=== PATIENT | male | born 1970 | race Caucasian/White ===

== ENCOUNTER 2016-12-19 19:26 | Emergency (ER) | payer SELFPAY ==
[2016-12-19] MEDS ORDERED: Acetaminophen 500 MG TAB ONE (20:05)
[2016-12-19] MEDS ORDERED: Ondansetron HCl/PF 4 MG/2 ML Vial ONE (20:05)
[2016-12-19] MEDS ORDERED: Morphine 10 MG/ML VIAL ONE (20:05)
[2016-12-19 20:07] LABS: #Lymphocytes 0.7 thou/uL (1.20-3.40); #Monocytes 0.6 thou/uL (0.11-0.59); #Neutrophils 6.5 thou/uL (1.40-6.50); %Basophils 0.2 % (0.0-1.0); %Eosinophils 0.6 % (0.0-10.0); %Lymphocytes 8.5 % (21.0-51.0); %Monocytes 7.7 % (0.0-10.0); Hematocrit 57.7 % (42.0-52.0); Mean Platelet Volume 6.8 fL (7.4-10.4); Red Blood Cell (RBC) Count 6.29 mill/uL (4.70-6.10); White Blood Cell (WBC) Count 7.9 thou/uL (4.8-10.8)
[2016-12-19 20:22] LABS: Lactic Acid - Sepsis 1.7 mmol/L (0.5-2.2)
[2016-12-19 20:27] LABS: ALT (SGPT) 45 U/L (8-55); AST (SGOT) 51 U/L (5-34); Alkaline Phosphatase 121 U/L (40-150); Anion Gap 14 mmol/L (10-20); BUN (Urea Nitrogen) 7 mg/dL (8.9-20.6); Bilirubin, Total 1.8 mg/dL (0.2-1.2); Calc. Creatinine Clearance 0 mL/min (70-130); Calcium 9.1 mg/dL (7.8-10.44); Carbon Dioxide 25 mmol/L (22-29); Chloride 99 mmol/L (98-107); Estimated GFR-MDRD 71; Protein, Total 8.1 g/dL (6.0-8.3)
[2016-12-19] MEDS ORDERED: CEFTRIAXONE ROCEPHIN IVPB SCH (20:30)
[2016-12-19] MEDS ORDERED: PRE FILLED IVPB SCH (20:30)
[2016-12-19] MEDS ORDERED: ADMIXTURE FEE IVPB SCH (20:30)
[2016-12-19 20:46] LABS: Bilirubin Negative (Negative); Blood, Urine Negative (Negative); Glucose, Urine (Dipstick) Negative (Negative); Ketone, Urine Negative (Negative); Nitrite Negative (Negative); Protein, Urine (Dipstick) Negative (Neg-Trace)
--- NOTE | 2016-12-19 20:54 | RAD ---
AP CHEST: Indication: Emergency exam. IMPRESSION: No acute cardiopulmonary abnormality. COMMENTS: No comparisons available. Lungs are clear. Cardiomediastinal silhouette is normal. No acute osseous abnormality is evident. POS: [facility]
--- NOTE | 2016-12-19 22:18 | CT ---
CT ABDOMEN AND PELVIS WITHOUT IV CONTRAST: Indication: Right sided abdominal pain for three days. Comparison: 06-27-12 FINDINGS: The pleural based calcification involving the posterior and medial right hemithorax is stable. No renal or ureteral calculus is evident. No hydronephrosis is demonstrated. There is a normal appendix in the right lower quadrant. No free fluid or enlarged lymph nodes are evident. No acute osseous abnormality is demonstrated. IMPRESSION: 1. No renal or ureteral calculus. 2. Normal appendix. POS: [facility]
== END 2016-12-19 22:51 | disposition home or self-care (01) ==
LOC: ERS 19:26
DX: R10.9 Unspecified abdominal pain (principal); R50.9 Fever, unspecified; F17.210 Nicotine dependence, cigarettes, uncomplicated
CPT/HCPCS: 36415; 71010; 74176; 80053; 81003; 83605; 85025; 87040; 87086; 94760; 96361; 96374; 96375; J0696; J2270; J2405

== ENCOUNTER 2018-01-28 16:50 | Emergency (ER) | payer SELFPAY ==
[2018-01-28 17:40] LABS: #Basophils 0.1 thou/uL (0.0-0.2); #Eosinphils 0.4 thou/uL (0.0-0.7); #Lymphocytes 1.8 thou/uL (1.20-3.40); #Monocytes 1.2 thou/uL (0.11-0.59); %Basophils 0.4 % (0.0-1.0); %Eosinophils 2.4 % (0.0-10.0); %Lymphocytes 12.4 % (21.0-51.0); %Monocytes 8.4 % (0.0-10.0); %Neutrophils 76.4 % (42.0-75.0); Hemoglobin 14.6 g/dL (14.0-18.0); Mean Corpuscular HGB CONC 32.9 g/dL (32.0-36.0); Mean Corpuscular Hemoglobin 29.8 pg (27.0-31.0); Mean Corpuscular Volume 90.6 fL (78.0-98.0); Mean Platelet Volume 7.5 fL (7.4-10.4); Platelet Count 356 thou/uL (130-400); RBC Distribution Width 11.7 % (11.5-14.5); Red Blood Cell (RBC) Count 4.89 mill/uL (4.70-6.10); White Blood Cell (WBC) Count 14.4 thou/uL (4.8-10.8)
[2018-01-28] MEDS ORDERED: Morphine 4 MG/ML VIAL ONE (17:49)
[2018-01-28] MEDS ORDERED: Ondansetron PF 4 MG/2 ML Vial ONE ×2 (17:49→17:58)
[2018-01-28 18:03] LABS: ALT (SGPT) 25 U/L (8-55); AST (SGOT) 18 U/L (5-34); Alkaline Phosphatase 100 U/L (40-150); Anion Gap 13 mmol/L (10-20); BUN (Urea Nitrogen) 10 mg/dL (8.9-20.6); Bilirubin, Total 0.4 mg/dL (0.2-1.2); Calc. Creatinine Clearance 0 mL/min (70-130); Carbon Dioxide 22 mmol/L (22-29); Chloride 106 mmol/L (98-107); Estimated GFR-MDRD 84; Globulin 3.1 g/dL (2.4-3.5); Glucose 118 mg/dL (70-105); Lipase 20 U/L (8-78); Potassium 4.4 mmol/L (3.5-5.1); Protein, Total 7.1 g/dL (6.0-8.3); Sodium 137 mmol/L (136-145)
[2018-01-28 18:54] LABS: Bilirubin Negative (Negative); Blood, Urine Negative (Negative); Clarity CLEAR (Clear); Glucose, Urine (Dipstick) Negative (Negative); Leukocyte Negative (Negative); Nitrite Negative (Negative); Protein, Urine (Dipstick) Negative (Neg-Trace); Urobilinogen 0.2 mg/dL (0.2-1.0); pH, Urine 6.5 (5.0-9.0)
--- NOTE | 2018-01-28 18:54 | CT ---
NONCONTRAST CT ABDOMEN AND PELVIS: 01/28/2018 HISTORY: Cramping right lower quadrant abdominal pain for the past three hours. COMPARISON: 12/19/2016 FINDINGS: Calcified pleural-based plaque is again seen at the posterior right lung base, with linear scarring i n the right middle lobe. The left lung base is clear. The liver, spleen, pancreas, bilateral adrenal glands, kidneys, and urinary bladder demonstrate a radha ssly normal nonenhanced CT appearance. No renal or ureteral calculi are seen bilaterally. The appendix is visualized and is normal in caliber. There has been interval development of a mass at the right aspect of the pelvis, adjacent to the righ t iliac vessels and adjacent to the right psoas and iliopsoas muscle. This is likely related to an e nlarged lymph node or conglomeration of lymph nodes, and this measures 5.3 cm craniocaudal x 4.8 cm A P x 3.7 cm transverse. No additional enlarged lymph nodes are seen. No aortocaval lymphadenopathy i s present. IMPRESSION: 1. Interval development of an enlarged right iliac chain lymph node, which may be secondary to metas tatic disease, given the patient's history of prior testicular cancer on the right. No additional en larged lymph nodes are seen. 2. No renal or ureteral calculi are seen bilaterally. 3. No CT evidence of appendicitis. The above findings were discussed with Dr. Martínez in the emergency department on 01/28/2018 at 1734 hours. CODE CR POS: [facility]
[2018-01-28] MEDS ORDERED: Ketorolac Tromethamine 30 MG/ML VIAL ONE (19:05)
== END 2018-01-28 19:20 | disposition home or self-care (01) ==
LOC: ERS 16:50
DX: R10.11 Right upper quadrant pain (principal); F17.210 Nicotine dependence, cigarettes, uncomplicated
CPT/HCPCS: 36415; 74176; 80053; 81003; 83690; 85025; 96374; 96375; J1885; J2270; J2405

== ENCOUNTER 2018-07-29 13:53 | Emergency (ER) | payer SELFPAY ==
[~2018-07-29 13:53] MED LIST: ISOVUE-370 76%-LOCM 1 ML ONE
[2018-07-29 14:13] LABS: Bilirubin Negative (Negative); Blood, Urine Negative (Negative); Clarity CLEAR (Clear); Glucose, Urine (Dipstick) Negative (Negative); Leukocyte Negative (Negative); Nitrite Negative (Negative); Protein, Urine (Dipstick) Negative (Neg-Trace); Specific Gravity, Urine 1.019 (1.002-1.036); Urobilinogen 0.2 mg/dL (0.2-1.0)
[2018-07-29 14:14] LABS: #Eosinphils 0.3 thou/uL (0.0-0.7); #Lymphocytes 1.6 thou/uL (1.20-3.40); #Monocytes 1.2 thou/uL (0.11-0.59); #Neutrophils 13.2 thou/uL (1.40-6.50); %Basophils 0.1 % (0.0-1.0); %Eosinophils 1.8 % (0.0-10.0); %Monocytes 7.4 % (0.0-10.0); %Neutrophils 80.8 % (42.0-75.0); Hemoglobin 16.1 g/dL (14.0-18.0); Mean Corpuscular HGB CONC 33.8 g/dL (32.0-36.0); Mean Corpuscular Hemoglobin 30.6 pg (27.0-31.0); Mean Corpuscular Volume 90.6 fL (78.0-98.0); Mean Platelet Volume 7.3 fL (7.4-10.4); Platelet Count 352 thou/uL (130-400); RBC Distribution Width 12.1 % (11.5-14.5); Red Blood Cell (RBC) Count 5.25 mill/uL (4.70-6.10); White Blood Cell (WBC) Count 16.3 thou/uL (4.8-10.8)
[2018-07-29 14:34] LABS: ALT (SGPT) 31 U/L (8-55); AST (SGOT) 22 U/L (5-34); Albumin 4.4 g/dL (3.5-5.0); Alkaline Phosphatase 86 U/L (40-150); Anion Gap 14 mmol/L (10-20); BUN (Urea Nitrogen) 12 mg/dL (8.9-20.6); Bilirubin, Total 0.9 mg/dL (0.2-1.2); Calc. Creatinine Clearance 0 mL/min (70-130); Calcium 9.3 mg/dL (7.8-10.44); Carbon Dioxide 22 mmol/L (22-29); Chloride 103 mmol/L (98-107); Estimated GFR-MDRD Greater than 90; Globulin 3.3 g/dL (2.4-3.5); Glucose 131 mg/dL (70-105); Lipase 17 U/L (8-78); Potassium 4.1 mmol/L (3.5-5.1); Protein, Total 7.7 g/dL (6.0-8.3); Sodium 135 mmol/L (136-145)
--- NOTE | 2018-07-29 15:27 | CT ---
CT Abdomen Pelvis W Con History: Right lower quadrant abdominal pain Comparison: CT abdomen and pelvis January 2018 Findings: A small millimeters nodule anterior aspect of the lingula. 2 mm nodule within the right mid dle lobe. Smaller 3 to 4 mm nodules right lower lobe. Multiple calcified right pleural plaques. No pericardial effusion. Gallbladder fundal adenomyomatosis. Spleen, pancreas, adrenal glands are normal. There is a centrally hypodense mass concerning for a necrotic lymph node at the bifurcation of the ri ght internal/external iliac arteries measuring 3.1 x 3.1 x 4 cm. This is relatively similar to the 2018 study. Asymmetric mildly prominent right superficial inguinal lymph nodes are present. Small hypodensity inferior left renal medullary suggestive of a cyst. No other abnormal retroperitone al periaortic adenopathy. Gallbladder and adrenal glands are unremarkable. No acute osseous abnormality. Impression: 1. No acute inflammatory process within the abdomen or pelvis. 2. Similar appearance of the abnormal lymph nodes of the right iliac bifurcation with central necrosi s suggesting metastasis. 3. Small bibasilar pulmonary nodules.
[2018-07-29] MEDS ORDERED: Ondansetron PF 4 MG/2 ML Vial ONE (15:52)
[2018-07-29] MEDS ORDERED: Ketorolac Tromethamine 30 MG/ML VIAL ONE (15:52)
== END 2018-07-29 16:40 | disposition home or self-care (01) ==
LOC: ERS 13:53
DX: R10.31 Right lower quadrant pain (principal); R59.0 Localized enlarged lymph nodes; F17.210 Nicotine dependence, cigarettes, uncomplicated
CPT/HCPCS: 36415; 74177; 80053; 81003; 83690; 85025; 93005; 96374; 96375; J1885; J2405; Q9966

== ENCOUNTER 2020-05-08 19:26 | Emergency (ER) | payer OTHER, SELFPAY ==
[2020-05-08] MEDS ORDERED: Ketorolac Tromethamine 30 MG/ML VIAL ONE ×2 (20:39→22:12)
[2020-05-08] MEDS ORDERED: Gentamicin 80 MG/2 ML VIAL ONE (20:39)
[2020-05-08 20:58] LABS: #Eosinphils 0.2 thou/uL (0.0-0.7); #Lymphocytes 1.7 thou/uL (1.20-3.40); #Monocytes 1.2 thou/uL (0.11-0.59); #Neutrophils 8.1 thou/uL (1.40-6.50); %Basophils 0.3 % (0.0-1.0); %Lymphocytes 15.2 % (21.0-51.0); %Monocytes 10.6 % (0.0-10.0); %Neutrophils 71.8 % (42.0-75.0); Hemoglobin 15.1 g/dL (14.0-18.0); Mean Corpuscular HGB CONC 32.8 g/dL (32.0-36.0); Mean Corpuscular Hemoglobin 29.8 pg (27.0-31.0); Mean Platelet Volume 7.5 fL (7.4-10.4); Platelet Count 345 thou/uL (130-400); RBC Distribution Width 12.9 % (11.5-14.5); Red Blood Cell (RBC) Count 5.06 mill/uL (4.70-6.10); White Blood Cell (WBC) Count 11.3 thou/uL (4.8-10.8)
[2020-05-08 21:20] LABS: ALT (SGPT) 28 U/L (8-55); AST (SGOT) 25 U/L (5-34); Albumin 4.1 g/dL (3.5-5.0); Alkaline Phosphatase 88 U/L (40-110); Anion Gap 15 mmol/L (10-20); BUN (Urea Nitrogen) 10 mg/dL (8.9-20.6); Calc. Creatinine Clearance 0 mL/min (70-130); Calcium 9.1 mg/dL (7.8-10.44); Carbon Dioxide 22 mmol/L (22-29); Chloride 105 mmol/L (98-107); Globulin 3.1 g/dL (2.4-3.5); Glucose 91 mg/dL (70-105); Potassium 3.9 mmol/L (3.5-5.1); Protein, Total 7.2 g/dL (6.0-8.3); Sodium 138 mmol/L (136-145)
[2020-05-08] MEDS ORDERED: Sodium Chloride 0.9% 30 ML ONE (21:31)
[2020-05-08] MEDS ORDERED: Thrombin 5000 UNITS/5 ML VIAL ONE (21:31)
[2020-05-08] MEDS ORDERED: Bacitracin Zinc Ointment 30 gm TUBE ONE (21:31)
[2020-05-08] MEDS ORDERED: Bupivacaine PF 0.5% 30 ML VIAL ONE (21:31)
[2020-05-08] MEDS ORDERED: Fentanyl 100 MCG/2 ML VIAL ONE (21:32)
[2020-05-08] MEDS ORDERED: Sodium Chloride 0.9% 20 ML ONE (21:37)
[2020-05-08] MEDS ORDERED: Lidocaine 1% PF 5 ML VIAL ONE (22:12)
[2020-05-08] MEDS ORDERED: Glycopyrrolate 0.2 MG/ML 5 ML SYRINGE ONE (22:12)
[2020-05-08] MEDS ORDERED: PROPOFOL 200 MG/20 ML VIAL ONE (22:12)
[2020-05-08] MEDS ORDERED: Ondansetron PF 4 MG/2 ML Vial ONE (22:12)
[2020-05-08] MEDS ORDERED: Dexamethasone 20 MG/5 ML VIAL ONE (22:12)
[2020-05-08] MEDS ORDERED: Rocuronium Bromide 10 MG/ML (10ML VIAL) ONE (22:12)
[2020-05-08 22:34] LABS: SARS-CoV-2 NAA Rapid Test Not Detected (NotDetected)
[2020-05-08] MEDS ORDERED: Promethazine HCl 25 MG/ML VIAL SLOW IVP PRN (23:47)
[2020-05-08] MEDS ORDERED: Meperidine HCl/PF 25 MG/ML VIAL SLOW IVP PRN (23:47)
[2020-05-08] MEDS ORDERED: Ondansetron HCl/PF 4 MG/2 ML Vial IVP PRN (23:47)
== END 2020-05-08 22:04 | disposition admitted as inpatient to this hospital (09) ==
LOC: ERS 19:26
DX: S61.412A Laceration without foreign body of left hand, initial encounter (principal); S56.422A Laceration of extensor muscle, fascia and tendon of left index finger at forearm level, initial encounter; F17.210 Nicotine dependence, cigarettes, uncomplicated; W26.8XXA Contact with other sharp object(s), not elsewhere classified, initial encounter
CPT/HCPCS: 36415; 80053; 85025; 85652; 86140; 96365; 96375; J0690; J1100; J1580; J1885; J2405; J2704; J3010; J3370; J3490; S0020; U0002

== ENCOUNTER 2020-09-18 14:51 | Emergency (ER) | payer OTHER, SELFPAY ==
[2020-09-18] MEDS ORDERED: Fluorescein Opthalmic Strip ONE (15:59)
[2020-09-18] MEDS ORDERED: Proparacaine 0.5% Opth 15 ML BOT ONE (16:00)
== END 2020-09-18 16:37 | disposition home or self-care (01) ==
LOC: ERS 14:51
DX: S05.01XA Injury of conjunctiva and corneal abrasion without foreign body, right eye, initial encounter (principal); K02.9 Dental caries, unspecified; K03.81 Cracked tooth; F17.210 Nicotine dependence, cigarettes, uncomplicated; X58.XXXA Exposure to other specified factors, initial encounter
CPT/HCPCS: 99283

== ENCOUNTER 2024-02-20 20:06 | Emergency (ER) | payer SELFPAY ==
[2024-02-20] MEDS ORDERED: HYDROcodone/Acetaminophen 10/325 mg Tablet ONE (20:53)
[2024-02-20] MEDS ORDERED: Ketorolac Tromethamine 30 MG (1 mL) VIAL ONE (23:15)
[2024-02-20] MEDS ORDERED: Amoxicillin/Potassium Clav 875 MG TAB ONE (23:15)
== END 2024-02-20 23:42 | disposition home or self-care (01) ==
LOC: ERS 20:06
DX: S62.617A Displaced fracture of proximal phalanx of left little finger, initial encounter for closed fracture (principal); S09.90XA Unspecified injury of head, initial encounter; F17.210 Nicotine dependence, cigarettes, uncomplicated; V18.0XXA Pedal cycle driver injured in noncollision transport accident in nontraffic accident, initial encounter; Y93.55 Activity, bike riding
CPT/HCPCS: 29125; 70450; 72125; 96372; J1885